=== PATIENT | female | born 2000 | race Caucasian/White ===

== ENCOUNTER 2021-02-24 12:37 | Inpatient (IN) | payer MEDICAID ==
[~2021-02-24] VITALS: Ht 154.9 cm; Wt 61.7 kg
[2021-02-24] MEDS ORDERED: LACTATED RINGERS 1,000 ML IV SCH (13:15)
[2021-02-24] MEDS ORDERED: METHYLERGONOVINE MALEATE 0.2 MG/ML IM PRN (13:15)
[2021-02-24] MEDS ORDERED: BUTORPHANOL TARTRATE 2 MG/ML VIAL IV PRN (13:15)
[2021-02-24] MEDS ORDERED: LIDOCAINE HCL 1% 20ML VIAL (Pyxis) INJ INFIL SCH (13:15)
[2021-02-24] MEDS ORDERED: DEXT 5%/LR + PITOCIN 20UNITS/L 1,000 ML IV SCH ×3 (13:15→15:00)
[2021-02-24 14:45] LABS: BASOPHILS % 0.3 % (0.0-2.0); EOSINOPHILS % 0.2 % (0.0-5.0); HEMATOCRIT. 36.5 % (36.0-48.0); HEMOGLOBIN. 12.4 g/dL (12.0-16.0); LYMPHOCYTES % 17.4 % (20.0-50.0); MEAN CORPUSCULAR HEMOGLOBIN 28.1 pg (28.0-32.0); MEAN CORPUSCULAR VOLUME 82.6 fL (81.0-99.0); MONOCYTES % 5.7 % (2.0-8.0); NEUTROPHILS % 76.4 % (40.0-76.0); PLATELET 227 x1000/uL (130-400); RED BLOOD CELL COUNT 4.41 mill/uL (4.2-5.4); RED CELL DISTRIBUTION WIDTH 14.5 % (11.6-14.6)
[2021-02-24 14:48] LABS: CLARITY URINE CLEAR (CLEAR); COLOR URINE YELLOW (YELLOW); KETONES URINE NEGATIVE (NEGATIVE); LEUKOCYTE ESTERASE URINE 1+ (NEGATIVE); NITRITE URINE NEGATIVE (NEGATIVE); OCCULT BLOOD URINE 3+ (NEGATIVE); PROTEIN URINE NEGATIVE (NEGATIVE); UROBILINOGEN URINE 0.2 E.U./dL (0.2-1.0)
[2021-02-24 14:57] LABS: INR 0.9; PARTIAL THROMBOPLASTIN TIME 27.8 sec (23.4-31.0)
[2021-02-24] MEDS ORDERED: GLYCERIN/WITCH HAZEL LEAF MEDICATED PAD TOP PRN (15:00)
[2021-02-24] MEDS ORDERED: BENZOCAINE/LANOLIN/ALOE VERA SPRAY TOP PRN (15:00)
[2021-02-24] MEDS ORDERED: RHO(D) IMMUNE GLOBULIN 300 MCG/SYR IM PRN (15:00)
[2021-02-24] MEDS ORDERED: LANOLIN OINT 7GM TUBE TOP PRN (15:00)
[2021-02-24] MEDS ORDERED: IBUPROFEN 800MG TABLET PO PRN (15:00)
[2021-02-24] MEDS ORDERED: IBUPROFEN 400MG TABLET PO PRN (15:00)
[2021-02-24 15:04] LABS: *BARBITURATES SCREEN URINE NEGATIVE (NEGATIVE)
[2021-02-24 15:05] LABS: *AMPHETAMINES SCREEN URINE NEGATIVE (NEGATIVE); *BENZODIAZEPINES SCREEN URINE NEGATIVE (NEGATIVE); CANNABINOID URINE SCREEN NEGATIVE (NEGATIVE); METHADONE URINE SCREEN NEGATIVE (NEGATIVE); OPIATES URINE SCREEN NEGATIVE (NEGATIVE); PHENCYCLIDINE URINE SCREEN NEGATIVE (NEGATIVE)
[2021-02-24 15:06] LABS: *COCAINE SCREEN URINE NEGATIVE (NEGATIVE)
[2021-02-24 15:15] VITALS: BP 109/70
[2021-02-24 15:32] LABS: HEPATITIS B SURFACE ANTIGEN NEGATIVE
[2021-02-24 17:42] VITALS: BP 122/73
[2021-02-24 18:45] VITALS: BP 115/70
[2021-02-25 03:00] VITALS: BP 97/54
[2021-02-25] MEDS ORDERED: FERR325T23 PO (03:27)
[2021-02-25] MEDS ORDERED: MULT-1116 MT (03:27)
[2021-02-25] MEDS ORDERED: IBUP-2030 PO (03:27)
[2021-02-25] MEDS ORDERED: MEDROXYPROGESTERONE ACETATE 150MG/ML VIAL IM NR (06:00)
[2021-02-25 07:12] LABS: HEMOGLOBIN. 10.4 g/dL (12.0-16.0); MEAN CORPUSCULAR HEMOGLOBIN 27.8 pg (28.0-32.0); MEAN CORPUSCULAR VOLUME 83.1 fL (81.0-99.0); MEAN PLATELET VOLUME 9.7 fl (7.4-10.4); PLATELET 193 x1000/uL (130-400); RED BLOOD CELL COUNT 3.73 mill/uL (4.2-5.4); RED CELL DISTRIBUTION WIDTH 14.6 % (11.6-14.6)
[2021-02-25] MEDS: FERROUS SULFATE 325MG TABLET PO SCH ×2 (07:30→12:30)
[2021-02-25 08:33] VITALS: BP 107/63
[2021-02-25] MEDS ORDERED: PRENATAL VIT/FE FUMARATE/FA TABLET PO SCH (09:00)
[2021-02-25 17:17] LABS: PLATELET ESTIMATE NORMAL
== END 2021-02-25 14:40 | disposition home or self-care (01) | DRG 560 ==
LOC: OBSVTOIN 12:37 → 8 EST LDRP 12:37 → 8EST 15:00
PROVIDERS: ADMIT Obstetrics & Gynecology; ATTEND Obstetrics & Gynecology
PROC: 10E0XZZ Delivery of Products of Conception, External Approach (ICD-10-PCS; principal; 2021-02-24)
PROC: 0W8NXZZ Division of Female Perineum, External Approach (ICD-10-PCS; 2021-02-24)
DX: O99.892 Other specified diseases and conditions complicating childbirth (principal); M21.541 Acquired clubfoot, right foot; Z37.0 Single live birth; M21.542 Acquired clubfoot, left foot; Z3A.40 40 weeks gestation of pregnancy
CPT/HCPCS: 36415; 80305; 81003; 85025; 86592; 86703; 86762; 86850; 86900; 87340; 99281; G0378; J1050; J2590; J3490; J7120